=== PATIENT | female | born 1960 | race Caucasian/White ===

== ENCOUNTER 2018-07-29 06:27 | Day surgery (SDC) | payer BC ==
[~2018-07-29 06:27] MED LIST: FAMOTIDINE 20MG TABLET PO ONE; MECLIZINE 25 MG TABLET PO ONE; METOCLOPRAMIDE 10 MG TABLET PO ONE
[2018-07-29] MEDS ORDERED: PROPOFOL 10 MG/ML VIAL IV ONE (06:28)
[2018-07-29] MEDS ORDERED: MIDAZOLAM HCL 2MG/2ML VIAL IV ONE (06:28)
[2018-07-29] MEDS ORDERED: KETAMINE HCL 100MG/1ML VIAL INJ ONE (06:28)
[2018-07-29] MEDS ORDERED: ALPRAZOLAM 1 MG TAB PO ONE (06:28)
[2018-07-29] MEDS ORDERED: ACETAMINOPHEN 1,000 MG/100 ML BTL IVPB ONE (07:15)
[2018-07-29] MEDS ORDERED: RINGERS SOLUTION,LACTATED 550 ML IV ONE (09:17)
--- NOTE | 2018-07-30 12:11 | Operative Note ---
DATE OF SURGERY: 07/29/2018 SURGEON: Fracisco Torres DO PREOPERATIVE DIAGNOSIS: Carpal tunnel syndrome of the left wrist. POSTOPERATIVE DIAGNOSIS: Carpal tunnel syndrome of the left wrist. OPERATION: Decompression left median nerve of the wrist using 3.5 loop magnification. DESCRIPTION OF PROCEDURE: This 57-year-old female was taken to the operating room and placed in the supine position on the operating room table where a [place] block anesthesia was induced. The left upper extremity was then prepped with Hibiclens and draped in the usual sterile fashion. The operative procedure was performed by making a palmar incision following the hypothenar crease from the level of the base of the webspace of the thumb to the flexor crease of the wrist. Dissection was carried down through the skin and subcutaneous tissue. The palmar fascia was divided in line with the skin incision. The flexor retinaculum was identified, split to its proximal margin. Then, with the contents of the carpal tunnel under direct vision, the transverse carpal ligament was transected along its ulnar border. The radial flap was raised to expose the entire median nerve under the transverse carpal ligament. The recurrent motor branch of the median nerve was identified and protected. The nerve itself appeared to be grossly normal. The wound was irrigated with lactated Ringer's solution. The tourniquet was released and hemostasis was obtained with the electrocautery. The wound was closed with 6-0 nylon suture. Sterile dressings with plaster splint immobilization were applied. The patient was taken to the recovery room in satisfactory condition. GROSS PATHOLOGY: This patient demonstrated carpal tunnel syndrome. The nerve appeared to be grossly normal. The recurrent motor branch identified at the time of the surgery and found to be normal and it was protected during the procedure. THERESA
== END 2018-07-29 09:48 | disposition home or self-care (01) ==
LOC: SUR 06:27
PROVIDERS: ATTEND Orthopaedic Surgery
DX: G56.02 Carpal tunnel syndrome, left upper limb (principal); I10 Essential (primary) hypertension; K21.9 Gastro-esophageal reflux disease without esophagitis; E03.9 Hypothyroidism, unspecified; F98.8 Other specified behavioral and emotional disorders with onset usually occurring in childhood and adolescence
CPT/HCPCS: 64721; 01810; J3490; J7120